=== PATIENT | male | born 1935 | race Caucasian/White ===

== ENCOUNTER 2020-07-04 13:41 | Inpatient (IN) | payer OTHER ==
[~2020-07-04] VITALS: Ht 170.2 cm; Wt 74.8 kg
[2020-07-04 13:41] VITALS: BP_SYST 103
[2020-07-04] MEDS ORDERED: NACL 0.9% 1,000 ML IV ONE ×2 (14:00→15:45)
[2020-07-04 14:33] LABS: BASOPHILS % (AUTO) 0.8 % (0.0-2.0); EOSINOPHILS # (AUTO) 0.1 K/uL (0.0-0.4); EOSINOPHILS % (AUTO) 3.1 % (0.0-4.0); HEMATOCRIT 34.7 % (36-54); LYMPHOCYTES # (AUTO) 1.2 K/uL (1.0-5.5); LYMPHOCYTES % (AUTO) 24.7 % (20.5-51.5); MEAN CORPUSCULAR HEMOGLOBIN 31 pg (27-31); MEAN CORPUSCULAR HGB CONC 35 % (32-36); MEAN CORPUSCULAR VOLUME 91 fL (79.0-98.0); MONOCYTES # (AUTO) 0.2 K/uL (0.0-1.0); MONOCYTES % (AUTO) 4.2 % (1.7-9.3); NEUTROPHILS # (AUTO) 3.3 K/uL (1.8-7.7); NEUTROPHILS % (AUTO) 67.2 % (40.0-70.0); PLATELET COUNT (AUTO) 134 K/uL (130-430); RED BLOOD CELL COUNT(AUTO) 3.82 MIL/uL (4.2-6.2); RED CELL DISTRIBUTION WIDTH 13.7 % (9.0-15.0); WHITE BLOOD COUNT (AUTO) 4.9 K/uL (4.8-10.8)
[2020-07-04 14:35] LABS: ANION GAP 10 (5-15); CALCIUM 8.9 mg/dL (8.4-11.0); CHLORIDE 106 mmol/L (98-107); CREATININE 1.83 mg/dL (0.55-1.30); GLUCOSE 220 mg/dL (70-99); POTASSIUM 4.1 mmol/L (3.5-5.1); SODIUM SERUM 138 mmol/L (136-145); UREA NITROGEN, BLOOD 25 mg/dL (8-21)
[2020-07-04 14:42] LABS: ALANINE AMINOTRANSFERASE 13 U/L (12-78); ALBUMIN 3.2 g/dL (3.4-4.8); ASPARTATE AMINOTRANSFERASE 14 U/L (10-37); TOTAL BILIRUBIN 0.5 mg/dL (0.0-1.0)
[2020-07-04] MEDS ORDERED: cefTRIAXone 2 GM VIAL ONE (15:45)
[2020-07-04 16:14] LABS: BILIRUBIN,URINE NEGATIVE (NEGATIVE); BLOOD, URINE NEGATIVE (NEGATIVE); CLARITY/URINE CLEAR (CLEAR); COLOR,URINE YELLOW (YELLOW); GLUCOSE,URINE 1+ (NEGATIVE); KETONES,URINE NEGATIVE (NEGATIVE); LEUKOCYTE ESTERASE ,URINE TRACE (NEGATIVE); NITRITE, URINE NEGATIVE (NEGATIVE); PROTEIN URINE NEGATIVE (NEGATIVE); UROBILINOGEN,URINE 0.2 (0.2-1.0)
[2020-07-04] MEDS ORDERED: TRAZ-250 PO (16:26)
[2020-07-04 16:31] LABS: RBC,URINE 0-3 /HPF (0-3)
[2020-07-04] MEDS ORDERED: LAM250 PO (16:32)
[2020-07-04] MEDS ORDERED: COR3.125 PO (16:32)
[2020-07-04] MEDS ORDERED: ERGO500020 PO (16:32)
[2020-07-04] MEDS ORDERED: ASPI-1393 PO (16:32)
[2020-07-04] MEDS ORDERED: TAMS0.4C96 PO (16:32)
[2020-07-04] MEDS ORDERED: LIP40 PO (16:32)
[2020-07-04 16:33] LABS: BACTERIA,URINE FEW /HPF (None Seen)
[2020-07-04] MEDS ORDERED: METF1000 PO (17:00)
[2020-07-04] MEDS ORDERED: ACETAMINOPHEN 325 MG TABLET PO PRN (21:45)
[2020-07-04] MEDS ORDERED: NALOXONE HCL 0.4 MG/ML AMP (NARCAN) IVP PRN ×2 (21:45)
[2020-07-04] MEDS ORDERED: HYDROcodone/ACETAMIN 10-325 MG TAB PO PRN (21:45)
[2020-07-04] MEDS ORDERED: HYDROcodone/ACETAMIN 5-325 MG TAB (NORCO/ VICODIN) PO PRN (21:45)
[2020-07-04] MEDS ORDERED: LORazepam 2 MG/ML VIAL IVP PRN (21:45)
[2020-07-04] MEDS ORDERED: ONDANSETRON HCL 4 MG/2 ML VIAL IVP PRN (21:45)
[2020-07-04] MEDS ORDERED: NON-FORMULARY MEDICATION (Ergocalciferol (Vitamin D2) (Vitamin D2) 1 TAB) PO SCH (21:45)
[2020-07-04] MEDS: D5/0.45 NS 1,000 ML IV SCH (22:50)
[2020-07-04 23:49] VITALS: BP_SYST 153
[2020-07-05] MEDS: INSULIN REGULAR, HUMAN 100 UNITS/ML, 10 ML VIAL (humuLIN R) SUBCUT PRN ×4 (06:15→20:52)
[2020-07-05 07:32] LABS: BASOPHILS # (AUTO) 0.1 K/uL (0.0-0.2); BASOPHILS % (AUTO) 0.8 % (0.0-2.0); EOSINOPHILS # (AUTO) 0.2 K/uL (0.0-0.4); EOSINOPHILS % (AUTO) 2.8 % (0.0-4.0); HEMATOCRIT 35.5 % (36-54); HEMOGLOBIN 12.4 g/dL (14.0-18.0); LYMPHOCYTES # (AUTO) 1.4 K/uL (1.0-5.5); MEAN CORPUSCULAR HEMOGLOBIN 32 pg (27-31); MEAN CORPUSCULAR HGB CONC 35 % (32-36); MEAN CORPUSCULAR VOLUME 91 fL (79.0-98.0); MONOCYTES # (AUTO) 0.4 K/uL (0.0-1.0); NEUTROPHILS # (AUTO) 4.3 K/uL (1.8-7.7); NEUTROPHILS % (AUTO) 67.4 % (40.0-70.0); PLATELET COUNT (AUTO) 128 K/uL (130-430); RED BLOOD CELL COUNT(AUTO) 3.91 MIL/uL (4.2-6.2); RED CELL DISTRIBUTION WIDTH 13.6 % (9.0-15.0); WHITE BLOOD COUNT (AUTO) 6.3 K/uL (4.8-10.8)
[2020-07-05 07:42] LABS: ANION GAP 9 (5-15); CALCIUM 8.4 mg/dL (8.4-11.0); CHLORIDE 105 mmol/L (98-107); CREATININE 1.05 mg/dL (0.55-1.30); GLUCOSE 223 mg/dL (70-99); PHOSPHORUS 2.7 mg/dL (2.7-4.5); POTASSIUM 3.6 mmol/L (3.5-5.1); SODIUM SERUM 138 mmol/L (136-145); UREA NITROGEN, BLOOD 16 mg/dL (8-21)
[2020-07-05 08:00] VITALS: BP_SYST 143
[2020-07-05] MEDS: D5/0.45 NS 1,000 ML IV SCH ×2 (08:27→16:26)
[2020-07-05] MEDS: ASPIRIN 81 MG TABLET(ECOTRIN) PO SCH (08:29)
[2020-07-05] MEDS: CARVEDILOL 3.125 MG TABLET (COREG) PO SCH ×2 (08:29→20:49)
[2020-07-05] MEDS: metFORMIN HCL 500 MG TABLET PO SCH ×2 (08:30→15:50)
[2020-07-05] MEDS: cefTRIAXone 1 GM IVPB PREMIX 50 ML IV SCH (08:44)
[2020-07-05] MEDS: TERbinafine HCL 250 MG TABLET(LamISIL) PO SCH (08:44)
[2020-07-05] MEDS ORDERED: MAGNESIUM SULFATE 1 GM/2 ML VIAL IVP ONE (09:45)
[2020-07-05] MEDS ORDERED: MAGNESIUM SUL 2 GM/50 ML PREMIX IV ONE (10:00)
[2020-07-05 11:19] VITALS: BP_SYST 145
[2020-07-05 20:30] VITALS: BP_SYST 108; BP_SYST 158
[2020-07-05] MEDS: traZODone HCL 50 MG TABLET (DESYREL) PO SCH (20:50)
[2020-07-05] MEDS: ATORVASTATIN 20 MG TABLET PO SCH (20:50)
[2020-07-05] MEDS: TAMSULOSIN HCL 0.4 MG CAP PO SCH (20:50)
[2020-07-06 00:30] VITALS: BP_SYST 108
[2020-07-06] MEDS: D5/0.45 NS 1,000 ML IV SCH ×2 (02:26→13:52)
[2020-07-06] MEDS: INSULIN REGULAR, HUMAN 100 UNITS/ML, 10 ML VIAL (humuLIN R) SUBCUT PRN ×3 (06:26→20:44)
[2020-07-06 08:00] VITALS: BP_SYST 125
[2020-07-06 08:30] LABS: BASOPHILS % (AUTO) 0.6 % (0.0-2.0); EOSINOPHILS # (AUTO) 0.2 K/uL (0.0-0.4); EOSINOPHILS % (AUTO) 4.1 % (0.0-4.0); HEMATOCRIT 33.7 % (36-54); HEMOGLOBIN 11.6 g/dL (14.0-18.0); LYMPHOCYTES # (AUTO) 1.5 K/uL (1.0-5.5); LYMPHOCYTES % (AUTO) 25.6 % (20.5-51.5); MEAN CORPUSCULAR HEMOGLOBIN 31 pg (27-31); MEAN CORPUSCULAR HGB CONC 35 % (32-36); MEAN CORPUSCULAR VOLUME 91 fL (79.0-98.0); MONOCYTES # (AUTO) 0.4 K/uL (0.0-1.0); MONOCYTES % (AUTO) 6.2 % (1.7-9.3); NEUTROPHILS # (AUTO) 3.7 K/uL (1.8-7.7); NEUTROPHILS % (AUTO) 63.5 % (40.0-70.0); PLATELET COUNT (AUTO) 120 K/uL (130-430); RED BLOOD CELL COUNT(AUTO) 3.71 MIL/uL (4.2-6.2); RED CELL DISTRIBUTION WIDTH 14.2 % (9.0-15.0); WHITE BLOOD COUNT (AUTO) 5.8 K/uL (4.8-10.8)
[2020-07-06 08:39] LABS: ALANINE AMINOTRANSFERASE 9 U/L (12-78); ALBUMIN 2.8 g/dL (3.4-4.8); ANION GAP 9 (5-15); ASPARTATE AMINOTRANSFERASE 13 U/L (10-37); CALCIUM 8.4 mg/dL (8.4-11.0); CHLORIDE 106 mmol/L (98-107); CREATININE 1.18 mg/dL (0.55-1.30); GLUCOSE 182 mg/dL (70-99); POTASSIUM 3.9 mmol/L (3.5-5.1); SODIUM SERUM 139 mmol/L (136-145); TOTAL BILIRUBIN 0.4 mg/dL (0.0-1.0); UREA NITROGEN, BLOOD 15 mg/dL (8-21)
[2020-07-06 09:17] LABS: C-REACTIVE PROTEIN QUANT < 0.2 mg/dL (0-0.5)
[2020-07-06] MEDS: metFORMIN HCL 500 MG TABLET PO SCH ×2 (09:41→17:39)
[2020-07-06] MEDS: ASPIRIN 81 MG TABLET(ECOTRIN) PO SCH (09:41)
[2020-07-06] MEDS: CARVEDILOL 3.125 MG TABLET (COREG) PO SCH ×2 (09:42→20:32)
[2020-07-06] MEDS: cefTRIAXone 1 GM IVPB PREMIX 50 ML IV SCH (09:43)
[2020-07-06] MEDS: TERbinafine HCL 250 MG TABLET(LamISIL) PO SCH (09:43)
[2020-07-06 10:39] LABS: ERYTHROCYTE SEDIMENTATION RATE 8 MM/HR (0-15)
[2020-07-06 12:00] VITALS: BP_SYST 151
[2020-07-06 16:00] VITALS: BP_SYST 148
[2020-07-06 20:00] VITALS: BP_SYST 140
[2020-07-06] MEDS: traZODone HCL 50 MG TABLET (DESYREL) PO SCH (20:31)
[2020-07-06] MEDS: TAMSULOSIN HCL 0.4 MG CAP PO SCH (20:31)
[2020-07-06] MEDS: ATORVASTATIN 20 MG TABLET PO SCH (20:32)
[2020-07-07 00:35] VITALS: BP_SYST 128
[2020-07-07] MEDS: NORMAL SALINE 5 ML DISP.SYRIN IVF SCH ×4 (01:21→22:18)
[2020-07-07 06:50] LABS: BASOPHILS % (AUTO) 0.6 % (0.0-2.0); EOSINOPHILS # (AUTO) 0.3 K/uL (0.0-0.4); EOSINOPHILS % (AUTO) 4.3 % (0.0-4.0); HEMATOCRIT 33.4 % (36-54); HEMOGLOBIN 11.5 g/dL (14.0-18.0); LYMPHOCYTES # (AUTO) 2.1 K/uL (1.0-5.5); LYMPHOCYTES % (AUTO) 30.2 % (20.5-51.5); MEAN CORPUSCULAR HEMOGLOBIN 32 pg (27-31); MEAN CORPUSCULAR HGB CONC 35 % (32-36); MEAN CORPUSCULAR VOLUME 92 fL (79.0-98.0); MONOCYTES # (AUTO) 0.5 K/uL (0.0-1.0); MONOCYTES % (AUTO) 7.2 % (1.7-9.3); NEUTROPHILS # (AUTO) 3.9 K/uL (1.8-7.7); NEUTROPHILS % (AUTO) 57.7 % (40.0-70.0); PLATELET COUNT (AUTO) 118 K/uL (130-430); RED BLOOD CELL COUNT(AUTO) 3.65 MIL/uL (4.2-6.2); WHITE BLOOD COUNT (AUTO) 6.8 K/uL (4.8-10.8)
[2020-07-07 06:58] LABS: ANION GAP 10 (5-15); CALCIUM 8.4 mg/dL (8.4-11.0); CHLORIDE 104 mmol/L (98-107); GLUCOSE 149 mg/dL (70-99); POTASSIUM 4.3 mmol/L (3.5-5.1); SODIUM SERUM 139 mmol/L (136-145); UREA NITROGEN, BLOOD 23 mg/dL (8-21)
[2020-07-07 08:00] VITALS: BP_SYST 113
[2020-07-07 08:03] LABS: C-REACTIVE PROTEIN QUANT < 0.2 mg/dL (0-0.5)
[2020-07-07] MEDS: cefTRIAXone 1 GM IVPB PREMIX 50 ML IV SCH (08:51)
[2020-07-07] MEDS: CARVEDILOL 3.125 MG TABLET (COREG) PO SCH ×2 (08:51→22:16)
[2020-07-07] MEDS: ASPIRIN 81 MG TABLET(ECOTRIN) PO SCH (08:51)
[2020-07-07] MEDS: metFORMIN HCL 500 MG TABLET PO SCH ×2 (08:51→17:23)
[2020-07-07] MEDS: TERbinafine HCL 250 MG TABLET(LamISIL) PO SCH (08:52)
[2020-07-07 09:19] LABS: ERYTHROCYTE SEDIMENTATION RATE 9 MM/HR (0-15)
[2020-07-07] MEDS: INSULIN REGULAR, HUMAN 100 UNITS/ML, 10 ML VIAL (humuLIN R) SUBCUT PRN (11:29)
[2020-07-07 12:00] VITALS: BP_SYST 95
[2020-07-07 16:00] VITALS: BP_SYST 127
[2020-07-07] MEDS: TAMSULOSIN HCL 0.4 MG CAP PO SCH (22:14)
[2020-07-07] MEDS: traZODone HCL 50 MG TABLET (DESYREL) PO SCH (22:14)
[2020-07-07] MEDS: ATORVASTATIN 20 MG TABLET PO SCH (22:14)
[2020-07-07 22:19] VITALS: BP_SYST 99
[2020-07-08 00:19] VITALS: BP_SYST 120
[2020-07-08] MEDS: NORMAL SALINE 5 ML DISP.SYRIN IVF SCH ×2 (05:53→14:25)
[2020-07-08 06:50] LABS: BASOPHILS % (AUTO) 0.7 % (0.0-2.0); EOSINOPHILS # (AUTO) 0.3 K/uL (0.0-0.4); EOSINOPHILS % (AUTO) 3.9 % (0.0-4.0); HEMATOCRIT 33.1 % (36-54); HEMOGLOBIN 11.3 g/dL (14.0-18.0); LYMPHOCYTES # (AUTO) 1.6 K/uL (1.0-5.5); LYMPHOCYTES % (AUTO) 25.1 % (20.5-51.5); MEAN CORPUSCULAR HEMOGLOBIN 32 pg (27-31); MEAN CORPUSCULAR HGB CONC 34 % (32-36); MEAN CORPUSCULAR VOLUME 92 fL (79.0-98.0); MONOCYTES # (AUTO) 0.5 K/uL (0.0-1.0); MONOCYTES % (AUTO) 7.6 % (1.7-9.3); NEUTROPHILS % (AUTO) 62.7 % (40.0-70.0); PLATELET COUNT (AUTO) 118 K/uL (130-430); RED BLOOD CELL COUNT(AUTO) 3.59 MIL/uL (4.2-6.2); RED CELL DISTRIBUTION WIDTH 14.1 % (9.0-15.0); WHITE BLOOD COUNT (AUTO) 6.4 K/uL (4.8-10.8)
[2020-07-08 07:06] LABS: ANION GAP 8 (5-15); CALCIUM 8.5 mg/dL (8.4-11.0); CHLORIDE 105 mmol/L (98-107); CREATININE 1.27 mg/dL (0.55-1.30); GLUCOSE 155 mg/dL (70-99); PHOSPHORUS 3.4 mg/dL (2.7-4.5); POTASSIUM 4.3 mmol/L (3.5-5.1); SODIUM SERUM 137 mmol/L (136-145); UREA NITROGEN, BLOOD 27 mg/dL (8-21)
[2020-07-08 07:51] VITALS: BP_SYST 101
[2020-07-08] MEDS: metFORMIN HCL 500 MG TABLET PO SCH (08:00)
[2020-07-08 08:05] LABS: C-REACTIVE PROTEIN QUANT 0.5 mg/dL (0-0.5)
[2020-07-08] MEDS: cefTRIAXone 1 GM IVPB PREMIX 50 ML IV SCH (09:18)
[2020-07-08] MEDS ORDERED: ASPIRIN 81 MG TAB.CHEW ONE (09:26)
[2020-07-08] MEDS ORDERED: CARVEDILOL 3.125 MG TABLET (COREG) ONE (09:27)
[2020-07-08] MEDS: ASPIRIN 81 MG TABLET(ECOTRIN) PO SCH (09:29)
[2020-07-08] MEDS: TERbinafine HCL 250 MG TABLET(LamISIL) PO SCH (09:29)
[2020-07-08] MEDS: CARVEDILOL 3.125 MG TABLET (COREG) PO SCH (09:30)
[2020-07-08 09:49] LABS: ERYTHROCYTE SEDIMENTATION RATE 12 MM/HR (0-15)
[2020-07-08] MEDS ORDERED: metFORMIN HCL 500 MG TABLET PO ONE (10:00)
[2020-07-08 12:00] VITALS: BP_SYST 125
[2020-07-08] MEDS: INSULIN REGULAR, HUMAN 100 UNITS/ML, 10 ML VIAL (humuLIN R) SUBCUT PRN (12:05)
[2020-07-08] MEDS ORDERED: LEVO500T89 PO (14:09)
[2020-07-08 14:26] VITALS: BP_SYST 138
[2020-07-08 14:51] VITALS: BP_SYST 138
== END 2020-07-08 17:16 | disposition home or self-care (01) | DRG 871 ==
LOC: SED 13:41 → EDBD 13:41 → STU 18:07 → SMU 07-06 21:38
PROVIDERS: ADMIT Preventive Medicine Preventive Medicine/Occupational Environmental Medicine; ATTEND Preventive Medicine Preventive Medicine/Occupational Environmental Medicine
DX: A41.9 Sepsis, unspecified organism (principal); N17.0 Acute kidney failure with tubular necrosis; N39.0 Urinary tract infection, site not specified; E44.0 Moderate protein-calorie malnutrition; N10 Acute pyelonephritis; N17.9 Acute kidney failure, unspecified; I95.9 Hypotension, unspecified; B35.1 Tinea unguium; D69.6 Thrombocytopenia, unspecified; D64.9 Anemia, unspecified; E11.21 Type 2 diabetes mellitus with diabetic nephropathy; E78.5 Hyperlipidemia, unspecified; G47.00 Insomnia, unspecified; E83.42 Hypomagnesemia; I10 Essential (primary) hypertension; K57.90 Diverticulosis of intestine, part unspecified, without perforation or abscess without bleeding; N20.0 Calculus of kidney; N40.0 Benign prostatic hyperplasia without lower urinary tract symptoms; W18.30XA Fall on same level, unspecified, initial encounter; Z20.828 Contact with and (suspected) exposure to other viral communicable diseases; Y93.89 Activity, other specified; Y92.89 Other specified places as the place of occurrence of the external cause; Y99.8 Other external cause status; Z79.82 Long term (current) use of aspirin; Z79.899 Other long term (current) drug therapy; Z68.25 Body mass index [BMI] 25.0-25.9, adult
CPT/HCPCS: 36415; 71045; 76376; 80048; 80053; 81000-TC; 82043; 82435-TC; 82570; 82962; 83605; 83735-TC; 83874; 84100-TC; 84302-TC; 84484; 84999-TC; 85025; 85651-TC; 86140; 87040-TC; 87086; 93005; 96361; 96365; 99291; G0378; J0696; J1815